=== PATIENT | male | born 1955 | race Caucasian/White ===

== ENCOUNTER 2019-07-19 17:15 | Outpatient (CLI) | payer BC, SELFPAY ==
--- NOTE | ~2019-07-19 | US_ITS ---
EXAMINATION: US venous doppler [facility] DATE: 07/19/2019 17:57 INDICATION: Lower limb pain and swelling TECHNIQUE: Howard scale images without and with compression and Doppler images of the bilateral lower e xtremity veins were obtained. COMPARISON: None FINDINGS: The right common femoral vein, profunda femoral vein, femoral vein, popliteal vein, peroneal trunk, p osterior tibial veins, and greater saphenous vein are patent. There is thrombosis of the left common femoral vein, profunda femoral vein, femoral vein, popliteal v ein, peroneal trunk, and posterior tibial veins. The greater saphenous vein is patent. IMPRESSION: 1. Extensive deep venous thrombosis of the left leg. 2. No deep venous thrombosis of the right leg. Reviewed, dictated and finalized at location A.
== END 2019-07-19 17:16 | disposition home or self-care (01) ==
PROVIDERS: PCP Family Medicine; Visit Provider Physician Assistant
DX: M79.605 Pain in left leg (principal); M79.89 Other specified soft tissue disorders; I82.412 Acute embolism and thrombosis of left femoral vein; I82.432 Acute embolism and thrombosis of left popliteal vein; I82.452 Acute embolism and thrombosis of left peroneal vein; I82.442 Acute embolism and thrombosis of left tibial vein
CPT/HCPCS: 93970

== ENCOUNTER 2019-10-24 16:10 | Outpatient (CLI) | payer BC, SELFPAY ==
--- NOTE | ~2019-10-24 | US_ITS ---
EXAMINATION:US venous doppler LE LT INDICATION:Follow-up deep venous thrombosis TECHNIQUE: Multiple grayscale, color flow and Doppler images of the left lower extremity deep venous systems were obtained and reviewed. COMPARISON:07/19/2019 FINDINGS: There is chronic deep venous thrombosis of the left common femoral and femoral veins. The r emainder of the left lower extremity veins are patent with normal compressibility, color flow and aug mentation. IMPRESSION: 1: Chronic deep venous thrombosis of the left common femoral and femoral veins. Reviewed, dictated and finalized at location A.
== END 2019-10-24 16:11 | disposition home or self-care (01) ==
LOC: ANHIMG 16:11
PROVIDERS: PCP Family Medicine; Visit Provider Family Medicine
DX: I82.402 Acute embolism and thrombosis of unspecified deep veins of left lower extremity (principal)
CPT/HCPCS: 93971

== ENCOUNTER → 2020-02-27 15:18 | Outpatient (CLI) | payer BC, SELFPAY ==
--- NOTE | ~2020-02-27 | US_ITS ---
EXAMINATION: US venous doppler LE EXAM DATE: 02/27/2020 16:15 INDICATION: I82.402 - Acute embolism and thrombosis of unspecified deep veins of left lower extremity . TECHNIQUE: Multiple grayscale, color flow and Doppler images of the left lower extremity deep venous system obtained and reviewed. Comparison is made to prior examination from 10/24/2019. FINDINGS: There is interval recanalization of the left common femoral vein. Persistent nonocclusive thrombus in the femoral and popliteal veins. Suspect reversal of venous flow direction in the popliteal vein and nonthrombosed calf veins. There is an nonspecific echogenic structure with shadowing in popliteal fossa, measuring 2.2 cm, coul d be debris within a Shannon's cyst or less likely thrombosed popliteal arterial aneurysm. Consider cor relating with the x-ray. IMPRESSION: 1. Nonocclusive left femoral and popliteal DVT. 2. Echogenic structure in the popliteal fossa, probably Shannon's cyst. Consider frontal lateral knee x-ray. 3. Apparent reversal of venous flow suspected in popliteal and some calf veins. Reviewed, dictated and finalized at location B. RVISOR CEREAL IMPRESSION: 1. Nonocclusive left femoral and popliteal DVT. 2. Echogenic structure in the popliteal fossa, probably Shannon's cyst. Consider frontal lateral knee x-ray. 3. Apparent reversal of venous flow suspected in popliteal and some calf veins .
== END ==
PROVIDERS: PCP Family Medicine; Visit Provider Family Medicine
DX: I82.432 Acute embolism and thrombosis of left popliteal vein (principal); I82.412 Acute embolism and thrombosis of left femoral vein
CPT/HCPCS: 93971

== ENCOUNTER 2020-03-25 11:19 | Outpatient (CLI) | payer BC, SELFPAY ==
--- NOTE | ~2020-03-25 | US_ITS ---
EXAMINATION: US venous doppler [facility] DATE: 03/25/2020 11:58 INDICATION: Acute thrombosis of the deep veins of the left lower limb. TECHNIQUE: Grayscale ultrasound images without and with compression and Doppler ultrasound images of the left lower extremity veins were obtained. COMPARISON: 02/27/2020 FINDINGS: There is persistent thrombosis in the left femoral vein which is partially compressible proximal and noncompressible in the mid to distal vein. The visualized portions of left common femoral vein, profu nda (deep) femoral vein, popliteal vein, posterior tibial veins, gastrocnemius vein and greater saphe nous vein outflow are patent. There is however flow reversal in the proximal left popliteal vein and gastrocnemius vein IMPRESSION: 1. Persistent deep venous thrombosis of the left femoral vein with flow reversal in the left poplite al and gastrocnemius veins. Reviewed, dictated and finalized at location B. [employer] IMPRESSION: 1. Persistent deep venous thrombosis of the left femoral vein with flow revers al in the left popliteal and gastrocnemius veins.
== END 2020-03-25 11:20 | disposition home or self-care (01) ==
PROVIDERS: PCP Family Medicine; Visit Provider Physician Assistant
DX: I82.412 Acute embolism and thrombosis of left femoral vein (principal)
CPT/HCPCS: 93971

== ENCOUNTER 2020-06-21 09:57 | Outpatient (CLI) | payer BC, SELFPAY ==
--- NOTE | ~2020-06-21 | XR_ITS ---
EXAMINATION: XR knee RT min 4V DATE: 06/21/2020 10:30 INDICATION: Right knee pain. TECHNIQUE: 4 views of right knee were obtained. COMPARISON: None. FINDINGS: Bone alignment is normal. No fracture. There is moderate osteoarthritis of medial compartme nt and mild osteoarthritis of lateral and patellofemoral compartments. No knee joint effusion. There are loose bodies in the posterior aspect of the knee joint. IMPRESSION: 1. Moderate right knee osteoarthritis. 2. Right knee joint loose bodies. Reviewed, dictated and finalized at location B.
== END 2020-06-21 09:58 | disposition home or self-care (01) ==
LOC: ANHIMG 10:05
PROVIDERS: PCP Family Medicine; Visit Provider Physician Assistant
DX: M25.561 Pain in right knee (principal); M17.11 Unilateral primary osteoarthritis, right knee; M23.41 Loose body in knee, right knee
CPT/HCPCS: 73564

== ENCOUNTER → 2020-07-01 10:58 | Outpatient (CLI) | payer BC, SELFPAY ==
--- NOTE | ~2020-07-01 | MR_ITS ---
EXAMINATION: MR knee RT wo con DATE: 07/01/2020 11:41 INDICATION: Right knee pain TECHNIQUE: Magnetic resonance imaging (MRI) of the right knee was performed without intravenous contr ast. Sequences included coronal PD-weighted FSE, coronal PD-weighted FS FSE, sagittal T2-weighted FS E, sagittal PD-weighted FS FSE and axial PD weighted fat saturated FSE. COMPARISON: Right knee radiographs dated 06/21/2020 FINDINGS: Medial compartment: Complex tear of the body and posterior horn of the medial meniscus. Extensive full/near full-thicknes s cartilage loss at the medial tibial plateau and anterior to central weightbearing medial femoral co ndyle with small scattered regions of mild subarticular edema. Moderate size marginal osteophytes are present. Lateral compartment: Lateral meniscus is normal. Deep chondral fissuring without degenerative subchondral changes along th e anterior to central weightbearing lateral femoral condyle. Small marginal osteophytes are present. Patellofemoral compartment: Tarsal thickness chondral loss and deep chondral fissuring at the medial trochlea, trochlear groove a nd medial side of the lateral trochlea. Tiny central subchondral ossified at the inferior aspect of t he medial trochlea. Mild partial thickness cartilage loss and deep fissuring without degenerative sub chondral changes at the inferior aspect of the medial patellar facet. Small to moderate size marginal osteophytes are present. Ligaments and tendons: Anterior and posterior cruciate ligaments are normal. The medial collateral ligament and fibular bill ateral ligament complex are normal. The extensor mechanism is normal. The visualized medial and later al hamstring tendons as well as the iliotibial band are normal. Fluid: Physiologic amount of fluid in the joint space. Cluster of small loose osteochondral bodies in the re cess posterior to the distal posterior cruciate ligament. Mild prepatellar edema. Osseous/other: No fracture or pathologic marrow replacing process. Hypertrophic change along the posterolateral supr acondylar footplate of the lateral head of the gastrocnemius muscle. IMPRESSION: 1. Complex tear of the medial meniscus. 2. Tricompartmental osteoarthritis, moderate severity with extensive moderate high-grade chondral mal acia in the medial compartment and mild with moderate grade chondral malacia in the lateral and moses lofemoral compartments. Reviewed, dictated and finalized at location A. IMPRESSION: 1. Complex tear of the medial meniscus. 2. Tricompartmental osteoarthritis, moderate severity with extensive moderate h igh-grade chondral malacia in the medial compartment and mild with moderate gra de chondral malacia in the lateral and patellofemoral compartments.
== END ==
PROVIDERS: PCP Family Medicine; Visit Provider Physician Assistant
DX: M17.11 Unilateral primary osteoarthritis, right knee (principal); S83.231D Complex tear of medial meniscus, current injury, right knee, subsequent encounter; X58.XXXD Exposure to other specified factors, subsequent encounter
CPT/HCPCS: 73721

== ENCOUNTER → 2021-01-27 07:26 | Outpatient (REF) | payer BC, SELFPAY | LOC: ANHLAB 07:26 | PROVIDERS: PCP Family Medicine; Visit Provider Nurse Practitioner | DX: D04.22 Carcinoma in situ of skin of left ear and external auricular canal (principal) | CPT/HCPCS: 88305; 88331 ==

== ENCOUNTER 2021-04-29 15:32 | Outpatient (CLI) | payer BC, SELFPAY ==
--- NOTE | ~2021-04-29 | XR_ITS ---
XR lumbar spine 2-3V DATE: 04/29/2021 16:12 INDICATION: Back pain TECHNIQUE: AP, lateral, coned lateral lumbosacral views COMPARISON: None FINDINGS: There is levoscoliosis of the thoracic and upper lumbar spine. There is diffuse severe degenerative disc disease at L4-5 and moderately severe degenerative disease at L2-3, L3-4 and L5-S1. Mild degenerative disease at L1-2. There is associated minimal retrolisthesi s at L4-5. No fracture or bone destruction. The lumbar pedicles are intact. The sacroiliac joints are intact. IMPRESSION: Multilevel prominent degenerative disc disease Reviewed, dictated and finalized at location A. ENSATION AND BENEFITS ANALYST
== END 2021-04-29 15:33 | disposition home or self-care (01) ==
LOC: ANHIMG 15:35
PROVIDERS: PCP Family Medicine; Visit Provider Physician Assistant
DX: M47.817 Spondylosis without myelopathy or radiculopathy, lumbosacral region (principal)
CPT/HCPCS: 72100

== ENCOUNTER → 2021-07-04 02:11 | Outpatient (CLI) | payer BC, SELFPAY ==
[2021-07-04 11:04] LABS: Influenza A QL RT-PCR Negative (Negative); Influenza B QL RT-PCR Negative (Negative); SARS-CoV-2 RNA PCR Positive
== END ==
PROVIDERS: PCP Family Medicine; Visit Provider Family Medicine
DX: U07.1 COVID-19 (principal)
CPT/HCPCS: 87502; C9803; U0003; U0005

== ENCOUNTER 2021-11-28 10:27 | Outpatient (CLI) | payer BC, SELFPAY ==
--- NOTE | ~2021-11-28 | US_ITS ---
EXAMINATION:US venous doppler LE LT INDICATION:Personal history of DVT. TECHNIQUE: Multiple grayscale, color flow and Doppler images of the left lower extremity deep venous systems were obtained and reviewed. COMPARISON:Ultrasound dated 03/25/2020 FINDINGS: There is normal flow in the common femoral, profunda femoral and popliteal veins demonstrat e normal respiratory variation, augmentation and compressibility. There is deep venous thrombosis in the superficial femoral and the peroneal veins, likely chronic. Color flow is also seen within the po sterior tibial, greater saphenous and profunda veins. IMPRESSION: 1: Deep venous thrombosis in the left superficial femoral and peroneal veins, likely chronic. Reviewed, dictated and finalized at location B. IMPRESSION: 1: Deep venous thrombosis in the left superficial femoral and peroneal veins, l ikely chronic.
== END 2021-11-28 10:28 | disposition home or self-care (01) ==
LOC: ANHIMG 10:31
PROVIDERS: PCP Family Medicine; Visit Provider Nurse Practitioner Family
DX: M79.89 Other specified soft tissue disorders (principal); M79.605 Pain in left leg; Z86.718 Personal history of other venous thrombosis and embolism; I82.412 Acute embolism and thrombosis of left femoral vein; I82.452 Acute embolism and thrombosis of left peroneal vein
CPT/HCPCS: 93971

== ENCOUNTER 2023-11-08 12:50 | Outpatient (CLI) | payer MEDICARE, OTHER, SELFPAY ==
[2023-11-08 13:29] LABS: Alanine Aminotransferase 64 U/L (6-50); Albumin Level 4.6 g/dL (3.5-5.1); Alkaline Phosphatase 50 U/L (38-126); Anion Gap 11 mmol/L (4-12); Aspartate Amino Transferase 43 U/L (17-59); Bilirubin,Total 0.5 mg/dL (0.2-1.3); Blood Urea Nitrogen 18 mg/dL (9-20); Calcium 9.8 mg/dL (8.4-10.2); Carbon Dioxide 27 mmol/L (22-30); Chloride 99 mmol/L (98-107); Estimated Glomerular Filt Rate > 60; Glucose 130 mg/dL (65-110); Potassium 4.4 mmol/L (3.4-5.0); Sodium 137 mmol/L (137-145)
== END 2023-11-08 12:51 | disposition home or self-care (01) ==
PROVIDERS: PCP Family Medicine; Visit Provider Family Medicine
DX: E11.9 Type 2 diabetes mellitus without complications (principal)
CPT/HCPCS: 36415; 80053; 83036

== ENCOUNTER 2024-07-12 12:39 | Outpatient (CLI) | payer MEDICARE, OTHER, SELFPAY ==
--- OUTSIDE RECORDS SUMMARY | 2024-07-12 12:45 | XMS_ITS | Clinical Summary ---
Author Organization [facility] Address [facility] [place] [address] Care Team Providers Care Child Nutrition Manager Name Role Phone Andrew Stein MD Primary Care Provider Allergies No known active allergies Medications omega-3 fatty acids 100 mg tablet,chewable 1 tablet 05/02/2020 Act mauri allopurinoL (ZYLOPRIM) 100 mg tablet 1 tablet 05/02/2020 Active colchicine (COLCRYS) 0.6 mg tablet 04/29/2020 Active fenofibrate (TRIGLIDE) 160 mg tablet Take 80 mg by mouth daily 04/09/2020 Active HYDROcodone-acet aminophen (NORCO) 5-325 mg per tablet Take by mouth every 6 (six) hours as needed 04/29/2020 Active Active Problems Problem Noted Date Diagnosed Date Laceration 05/03/2020 Social History Tobacco Use Types Packs/Day Years Used Date Smoking Tobacco: Never Smokeless Tobacco: Never Personal Safety Answer Date Recorded Getting School Help Needed Not on file 05/01 Sex and Gender Information Value Date Recorded Sex Assigned at Not on file 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 [employer] Gender Identity Not on file Sexual Orientation Not on file Obstetrics History Last Filed Vital Signs Vital Sign Reading Time Taken Comments Blood Pressure 155/100 05/02/2020 2:30 PM [employer] Pulse 73 05/02/2020 2:30 PM [employer] Temperature 36.6 C (97.8 F) 05/02/2020 2:30 PM [employer]DER [employer] Respiratory Rate - - Oxygen Saturation 100% 05/02/2020 2:30 PM M[employer]DER [employer] Inhaled Oxygen Concentration - - Weight 117.1 kg (258 lb 2.6 oz) 05/02/2020 2:30 PM [employer] Height 182.9 cm (6') 05/02/2020 2:30 PM [employer] Body Mass Index 35.01 05/02/2020 2:30 PM [employer] Plan of Treatment Not on file Insurance [facility] CASUAL[facility] Care Teams Child Nutrition Manager Relationship Specialty Start Date End Date Andrew Stein MD [address] [facility] [address] [place] [address] PCP - General 05/02/20
--- OUTSIDE RECORDS SUMMARY | 2024-07-12 12:45 | XMS_ITS | Continuity of Care Document ---
Author Organization [facility] Address [address] [place] [address] Phone Care Team Providers Care Harp Action Assembler Name Role Phone Provider, Ey[facility] Unavailable Unavailable Advance Directives Directive Yes / No Effective Date File Name No Information Encounters Encounter Description Practice Location Reason(s) For Visit Diagnoses Date Provider Providers Copied on Encounter [facility] [address] , [place], [place], [id number], [place] tel:[phone] [facility] No Information Provider Eyedoc. . Family History Family Member Type Diagnosis Age At Onset No Information Payers Payer name Insurance type Covered green party ID Authoriza tion(s) No Information Social History Type Description Quantity Date Captured Comments Sex Male Smoking Status No Information Chief Complaint And Reason For Visit No Information Reason For Referral Reason For Referral No Information History Of Present Illness Encounter Date Complaint History Of Prese nt Illness No Information Functional Status Date Functional Assessmen t No Information Instructions Date Instruction Additional Infor mation No Information Assessments Type Assessment Date No Information Patient Care Teams Name Effective Dates (start - stop) Status Members No Information
--- OUTSIDE RECORDS SUMMARY | 2024-07-12 12:45 | XMS_ITS | Referral Summary ---
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 Gender Identity Not on file Sexual Orientation Not on file Last Filed Vital Signs Vital Sign Reading Time Taken Comments Blood Pressure 155/100 05/02/2020 2:30 PM ACCESS REPRESENTATIVE Pulse 73 05/02/2020 2:30 PM ACCESS REPRESENTATIVE Temperature 36.6 C (97.8 F) 05/02/2020 2:30 PM ACCESS REPRESENTATIVE Respiratory Rate - - Oxygen Saturation 100% 05/02/2020 2:30 PM ACCESS REPRESENTATIVE Inhaled Oxygen Concentration - - Weight 117.1 kg (258 lb 2.6 oz) 05/02/2020 2:30 PM ACCESS REPRESENTATIVE Height 182.9 cm (6') 05/02/2020 2:30 PM ACCESS REPRESENTATIVE Body Mass Index 35.01 05/02/2020 2:30 PM ACCESS REPRESENTATIVE Plan of Treatment Not on file Insurance [facility] CASUALTY Care Teams Ream Cutter Relationship Specialty Start Date End Date Andrew Stein MD [address] [facility] [address] [place] [address] PCP - General 05/02/20
[2024-07-12 13:09] LABS: Alanine Aminotransferase 41 U/L (6-50); Albumin Level 4.7 g/dL (3.5-5.1); Alkaline Phosphatase 42 U/L (38-126); Anion Gap 8 mmol/L (4-12); Aspartate Amino Transferase 38 U/L (17-59); Bilirubin,Total 0.5 mg/dL (0.2-1.3); Blood Urea Nitrogen 17 mg/dL (9-20); Calcium 9.9 mg/dL (8.4-10.2); Carbon Dioxide 29 mmol/L (22-30); Chloride 104 mmol/L (98-107); Estimated Glomerular Filt Rate > 60; Glucose 202 mg/dL (65-110); Potassium 4.9 mmol/L (3.4-5.0); Sodium 141 mmol/L (137-145)
[2024-07-12 13:31] LABS: Hemoglobin A1C 6.4 % (<5.7)
== END 2024-07-12 12:40 | disposition home or self-care (01) ==
LOC: ANHLAB 12:42
PROVIDERS: PCP Family Medicine; Visit Provider Family Medicine
DX: E11.9 Type 2 diabetes mellitus without complications (principal)
CPT/HCPCS: 36415; 80053; 83036

== ENCOUNTER 2025-01-11 11:00 | Outpatient (CLI) | payer MEDICARE, OTHER, SELFPAY ==
[2025-01-11 11:59] LABS: Alanine Aminotransferase 39 U/L (6-50); Albumin Level 4.6 g/dL (3.5-5.1); Alkaline Phosphatase 49 U/L (38-126); Anion Gap 8 mmol/L (4-12); Aspartate Amino Transferase 30 U/L (17-59); Bilirubin,Total 0.5 mg/dL (0.2-1.3); Blood Urea Nitrogen 22 mg/dL (9-20); Calcium 9.5 mg/dL (8.4-10.2); Carbon Dioxide 26 mmol/L (22-30); Chloride 108 mmol/L (98-107); Estimated Glomerular Filt Rate 57; Glucose 111 mg/dL (65-110); Potassium 4.2 mmol/L (3.4-5.0); Sodium 142 mmol/L (137-145); Total Protein 7.9 g/dL (6.3-8.2)
--- OUTSIDE RECORDS SUMMARY | 2025-01-11 12:05 | XMS_ITS | Encounter Summary ---
Author Organization [facility] Address [address] [place] [address] Care Team Providers Care Senior Consulting Manager Name Role Phone Andrew Stein MD Primary Care Provider Encounter Details Date Type Department Care Team (Late st Contact Info) Description 12/21/2024 Results Follow-Up [place] [facility] at [address] [place] [address] Pete Newman NP [address] [place] [address] [address] [place] [address] Basic metabolic panel, Lipid panel, eGFR Social History Tobacco Use Types Packs/Day Years Used Date Smoking Tobacco: Never Smokeless Tobacco: Never Personal Safety Answer Date Recorded Have you ever been in or are you currently in a harmful physical or emotional relationship or is someone making you feel afraid or unsafe? 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 documented in this encounter Plan of Treatment Not on file documented as of this encounter Visit Diagnoses Not on filedocumented in this encounter Care Teams Senior Consulting Manager Relationship Specialty Start Date End Date Andrew Stein MD [address] [facility] [address] [place] [address] PCP - General 05/02/20 documented as of this encounter
--- OUTSIDE RECORDS SUMMARY | 2025-01-11 12:05 | XMS_ITS | Encounter Summary ---
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 Lab work sent in. documented in this encounter Plan of Treatment Not on file documented as of this encounter Visit Diagnoses Not on filedocumented in this encounter Care Teams Fountain Server Relationship Specialty Start Date End Date Andrew Stein MD [address] [facility] [address] [place] [address] PCP - General 05/02/20 documented as of this encounter
--- OUTSIDE RECORDS SUMMARY | 2025-01-11 12:05 | XMS_ITS | Clinical Summary ---
Author Organization [facility] Address [address] [place] [address] Care Team Providers Care Accounts Payable Assistant Name Role Phone Andrew Stein MD Primary Care Provider Allergies No known active allergies Medications omega-3 fatty acids 100 mg tablet,chewable 1 tablet 05/02/2020 Act mauri allopurinoL (ZYLOPRIM) 100 mg tablet 1 tablet (100 mg total) 05/02/2020 Active colchicine (COLCRYS) 0.6 mg tablet 04/29/2020 Active fenofibrate (TRIGLIDE) 160 mg tablet Take 0.5 tablets (80 mg total) by mouth daily 04/09/2020 Active HYDROcodone-hafsa taminophen (NORCO) 5-325 mg per tablet Take by mouth every 6 (six) hours as needed 04/29/2020 Active rivaroxaban (XARELTO) 20 mg tablet Take 1 tablet (20 mg total) by mouth daily Active cyclobenzaprine (FLEXERIL) 5 mg tablet TAKE 1 TABLET BY MOUTH EVERY DAY AT BEDTIME NEEDED FOR MUSCLE SPASM 09/04/2024 Active metFORMIN XR (GLUCOPHAGE XR) 500 mg 24 hr tablet Take 4 tablets (2,000 mg total) by mouth daily 09/21/2024 Active lisinopriL (PRINIVIL,ZESTR IL) 40 mg tablet Take 1 tablet (40 mg total) by mouth daily 90 tablet 3 10/05/2024 Active atorvastatin (LIPITOR) 80 mg tablet Take 1 tablet (80 mg total) by mouth nightly at bedtime 90 tablet 3 12/06/2024 Active Active Problems Problem Noted Date Diagnosed Date Primary hypertension 10/02/2024 Hyperlipidemia 10/02/2024 Chest pain, unspecified type 08/25/2024 Laceration 05/03/2020 Encounters Date Type Department Care Team Description 12/21/2024 Orders Only [place] [facility] at [address] [address] Pete Newman NP Hyperlipidemia, unspecified hyperlipidemia type (Primary Dx) 12/21/2024 Results Follow-Up [place] [facility] at [address] [address] Pete Newman NP Basic metabolic panel, Lipid panel, eGFR 12/20/2024 8:25 AM CDT Lab [address] Familial hypercholesterolemia, unspecified type 12/07/2024 Orders Only [place] [facility] at [address] [address] Pete Newman NP Familial hypercholesterolemia, unspecified type (Primary Dx) 12/07/2024 Orders Only [place] [facility] at [address] [address] Pete Newman NP Familial hypercholesterolemia, unspecified type (Primary Dx) 12/06/2024 9:20 AM CDT Lab [address] Hyperlipidemia, unspecified hyperlipidemia type 12/06/2024 Results Follow-Up [place] [facility] at [address] [address] Pete Newman NP Lipid panel 12/06/2024 Orders Only [place] [facility] at [address] [address] Pete Newman NP from Last 3 Months Social History Tobacco Use Types Packs/Day Years Used Date Smoking Tobacco: Never Smokeless Tobacco: Never Tobacco Cessation:Counseling Given: Not Answered Personal Safety Answer Date Recorded Have you ever been in or are you currently in a harmful physical or emotional relationship or is someone making you feel afraid or unsafe? Denies 08/24/2024 Sex and Gender Information Value Date Recorded Sex Assigned at Not on file Legal Sex Male 6:47 PM [employer] Gender Identity Not on file Sexual Orientation Not on file Last Filed Vital Signs Vital Sign Reading Time Taken Comments Blood Pressure 142/83 10/05/2024 10:31 AM CDT Pulse 77 10/05/2024 10:31 AM CDT Temperature 36.1 C (96.9 F) 08/25/2024 11:04 AM CDT Respiratory Rate 18 10/05/2024 10:31 AM CDT Oxygen Saturation 94% 08/25/2024 1:54 PM CDT Inhaled Oxygen Concentration - - Weight 115.2 kg (254 lb) 10/05/2024 10:31 AM CDT Height 182.9 cm (6') 10/05/2024 10:31 AM CDT Body Mass Index 34.45 10/05/2024 10:31 AM CDT Plan of Treatment Health Maintenance Due Date Last Done Comments Albumin Creatinine Ratio, Urine 1954 Colon Cancer Screening-Colonoscopy 1954 Depression Screening 1954 Hepatitis C Screening 1954 Dilated Eye Exam 1954 Foot Exam 1954 Hepatitis B Screening 1972 Pneumococcal vaccine 65+ (1 of 2 - PCV) 1973 Zoster Vaccine (1 of 2) 2004 Well Visit 65+ 06/22/2019 Influenza Vaccine (#1) 2024 12/26/2019 Hemoglobin A1C 02/24/2025 08/25/2024 Fall Risk Assessment 08/25/2025 08/25/2024 Lipid Panel 12/20/2025 12/20/2024, 10/0 09/2024, 08/25/2024 eGFR 12/20/2025 12/20/2024, 07/31, 08/24/2024 DTaP/Tdap/Td Vaccine (2 - Td or Tdap) 05/02/203005/2020 Abdominal Aortic Aneurysm (A AA) Screen Completed 08/24/2024 Procedures Procedure Name Priority Date/Time Associated Diagnosis Comments EGFR Routine 12/20/2024 8:25 AM CDT Familial hypercholesterolemia, unspecified type LIPID PANEL Routine 12/20/2024 8:25 AM CDT Familial hypercholesterolemia, unspecified type BASIC METABOLIC PANEL Routine 12/20/2024 8:25 AM CDT Familial hypercholesterolemia, unspecified type LIPID PANEL Routine 12/06/2024 9:22 AM CDT Hyperlipidemia, unspecified hyperlipidemia type HEMOGLOBIN A1C Routine 08/25/2024 3:35 AM CDT CTA CHEST ABDOMEN PELVIS ED 08/24/2024 11:09 PM CDT from Last 3 Months or Most Recently Relevant to Health Maintenance Results * eGFR (12/20/2024 8:25 AM CDT) eGFR 70 >=60 mL/min/1. 73 m2 Comment: Interpretive Data Reference Interval Normal >/= 90 mL/min/1.73m2 Mildly decreased* 60 - 89 mL/min/1.73m2 Mildly to moderately decreased 45 - 59 mL/min/1.73m2 Moderately to severely decreased 30 - 44 mL/min/1.73m2 Severely decreased 15 - 29 mL/min/1.73m2 Kidney Failure < 15 mL/min/1.73m2 *Relative to young adult level Estimated glomerular filtration rate is determined by the 2020 CKD-EPI equation recommended by the National Kidney Foundation (A Unifying Approach to GFR Estimation: Recommendations of the NKF-ASK Task Force on Reassessing the Inclusion of Race in Diagnosing Kidney Disease, JASN 202). The CKD-EPI equation should not be used for patients with unstable renal function and has not been validated in children and those over 70. Current interpretive data was last reviewed 2020. Blood 12/20/2024 8:25 AM CDT 12/20/2024 10:25 AM CDT us Pete Newman NP LAB BLOOD ORDERABLES Final R esult [facility] ([place]) [facility] Department [place] [address] * (ABNORMAL) Lipid panel (12/20/2024 8:25 AM CDT) Cholesterol 187 30 - 199 mg/dL Comment: Interpretive Data Ages < or = 19 years Acceptable: <170 mg/dL Borderline high: 170-199 mg/dL High: >or= 200 mg/dL Ages > or = 20 years Desirable: <200 mg/dL Borderline high: 200-239 mg/dL High: >or= 240 mg/dL Literature References: 1. Expert Panel on Integrated Guidelines for Cardiovascular Health and Risk Reduction in Children and Adolescents. Pediatrics 2011;128:S213 2. NCEP Expert Panel. Circulation 2004;110:227 Current Interpretive Data was last revised on 2017. Triglycerides 158(H) <=149 mg/dL [facility] ([place]) Comment: Interpretive Data Ages < or = 9 years Acceptable: <75 mg/dL Borderline high: 75-99 mg/dL High: >or= 100 mg/dL Ages 10 to 20 years Acceptable: <90 mg/dL Borderline high: 90-129 mg/dL High: >or= 130 mg/dL Ages > or = 20 years Desirable: <150 mg/dL Borderline high: 150-199 mg/dL High: 200-499 mg/dL Very high: >or= 499 mg/dL Literature References: 1. Expert Panel on Integrated Guidelines for Cardiovascular Health and Risk Reduction in Children and Adolescents. Pediatrics 2011;128:S213 2. NCEP Expert Panel. Circulation 2004;110:227 Current Interpretive Data was last revised on 2017. HDL 44 >=40 mg/dL [facility] ([place]) Comment: Interpretive Data Ages < or = 19 years Acceptable: >45 mg/dL Borderline low: 40-45 mg/dL Low: <40 mg/dL Ages > or = 20 years Desirable: >or= 60 mg/dL Low: <40 mg/dL Literature References: 1. Expert Panel on Integrated Guidelines for Cardiovascular Health and Risk Reduction in Children and Adolescents. Pediatrics 2011;128:S213 2. NCEP Expert Panel. Circulation 2004;110:227 Current Interpretive Data was last revised on 2017. LDL, calculated 115 <=129 mg/dL [facility]) Comment: Interpretive Data Ages < or = 19 years Acceptable: <110 mg/dL Borderline high: 110-129 mg/dL High: >or= 130 mg/dL Ages > or = 20 years Optimal: <100 mg/dL Near optimal: 100-129 mg/dL Borderline high: 130-159 mg/dL High: >160 mg/dL Calculated using the Maximo LDL-C estimating equation. This equation was implemented on 2023. Prior to this date LDL-C was estimated using the Friedewald equation. Literature References: 1. Expert Panel on Integrated Guidelines for Cardiovascular Health and Risk Reduction in Children and Adolescents. Pediatrics 2011;128:S213 2. NCEP Expert Panel. Circulation 2004;110:227 3. Maximo Nino et al. ADAN Cardiol. 2019June 29;5(5):540-548. doi: 10.1001/jamacardio.2020.0013 Current Interpretive Data was last revised on 2023. Non-HDL Cholesterol 143 mg/dL [facility] ([place]) Comment: Interpretive Data Ages < or = 19 years Acceptable: <120 mg/dL Borderline high: 120-144 mg/dL High: >145 mg/dL Ages > or = 20 years When triglycerides are >200 mg/dL, Non-HDL cholesterol is a secondary target of therapy with treatment goals that are 30 mg/dL greater than the LDL cholesterol target. Literature References: 1. Expert Panel on Integrated Guidelines for Cardiovascular Health and Risk Reduction in Children and Adolescents. Pediatrics 2011;128:S213 2. NCEP Expert Panel. Circulation 2004;110:227 Current Interpretive Data was last revised on 2017. Chol/HDL ratio 4 [facility] ([place]) Blood 12/20/2024 8:25 AM CDT 12/20/2024 10:25 AM CDT us Pete Newman LABEL MACHINE OPERATOR LAB BLOOD ORDERABLES Final R esult [facility] ([place]) [facility] [place] [address] * Basic metabolic panel (12/20/2024 8:25 AM CDT) Sodium 145 135 - 145 mmol/L Potassium, pl 4.2 3.3 - 4.9 mmol/L [facility] ([place]) Chloride 106 97 - 110 mmol/L [facility] ([place]) CO2 25 22 - 32 mmol/L [facility] ([place]) Anion gap 14 2 - 15 mmol/L [facility] ([place]) BUN 19 6 - 25 mg/dL [facility] ([place]) Creatinine 1.13 0.80 - 1.30 mg/dL [facility] ([place]) Glucose 107 70 - 199 mg/dL [facility] ([place]) Comment: Interpretive Data Fasting glucose >/= 126 mg/dl is diagnostic for diabetes. Fasting is defined as no caloric intake for at least 8 hours. Fasting glucose between 100 mg/dl to 125 mg/dl is diagnostic of prediabetes. In a patient with classic symptoms of hyperglycemia or hyperglycemic crisis, a random glucose >/= 200 mg/dl is diagnostic for diabetes. In the absence of unequivocal hyperglycemia, results should be confirmed by repeat testing. The classification and Diagnosis of Diabetes Diabetes Care 2021; 46: S19-S40. Current interpretive data was last revised 2022. Calcium 10.0 8.5 - 10.3 mg/dL [facility] ([place]) Blood 12/20/2024 8:25 AM CDT 12/20/2024 10:25 AM CDT us Pete Newman LABEL MACHINE OPERATOR LAB BLOOD ORDERABLES Final R esult [facility] ([place]) 1 [facility] Department [place] [address] * (ABNORMAL) Lipid panel (12/06/2024 9:22 AM CDT) Cholesterol 198 30 - 199 mg/dL [facility] ([place]) Comment: Interpretive Data Ages < or = 19 years Acceptable: <170 mg/dL Borderline high: 170-199 mg/dL High: >or= 200 mg/dL Ages > or = 20 years Desirable: <200 mg/dL Borderline high: 200-239 mg/dL High: >or= 240 mg/dL Literature References: 1. Expert Panel on Integrated Guidelines for Cardiovascular Health and Risk Reduction in Children and Adolescents. Pediatrics 2011;128:S213 2. NCEP Expert Panel. Circulation 2004;110:227 Current Interpretive Data was last revised on 2017. Triglycerides 189(H) <=149 mg/dL [facility] ([place]) Comment: Interpretive Data Ages < or = 9 years Acceptable: <75 mg/dL Borderline high: 75-99 mg/dL High: >or= 100 mg/dL Ages 10 to 20 years Acceptable: <90 mg/dL Borderline high: 90-129 mg/dL High: >or= 130 mg/dL Ages > or = 20 years Desirable: <150 mg/dL Borderline high: 150-199 mg/dL High: 200-499 mg/dL Very high: >or= 499 mg/dL Literature References: 1. Expert Panel on Integrated Guidelines for Cardiovascular Health and Risk Reduction in Children and Adolescents. Pediatrics 2011;128:S213 2. NCEP Expert Panel. Circulation 2004;110:227 Current Interpretive Data was last revised on 2017. HDL 45 >=40 mg/dL [facility] ([place]) Comment: Interpretive Data Ages < or = 19 years Acceptable: >45 mg/dL Borderline low: 40-45 mg/dL Low: <40 mg/dL Ages > or = 20 years Desirable: >or= 60 mg/dL Low: <40 mg/dL Literature References: 1. Expert Panel on Integrated Guidelines for Cardiovascular Health and Risk Reduction in Children and Adolescents. Pediatrics 2011;128:S213 2. NCEP Expert Panel. Circulation 2004;110:227 Current Interpretive Data was last revised on 2017. LDL, calculated 120 <=129 mg/dL [facility] ([place]) Comment: Interpretive Data Ages < or = 19 years Acceptable: <110 mg/dL Borderline high: 110-129 mg/dL High: >or= 130 mg/dL Ages > or = 20 years Optimal: <100 mg/dL Near optimal: 100-129 mg/dL Borderline high: 130-159 mg/dL High: >160 mg/dL Calculated using the Marsh LDL-C estimating equation. This equation was implemented on 2023. Prior to this date LDL-C was estimated using the Friedewald equation. Literature References: 1. Expert Panel on Integrated Guidelines for Cardiovascular Health and Risk Reduction in Children and Adolescents. Pediatrics 2011;128:S213 2. NCEP Expert Panel. Circulation 2004;110:227 3. Maximo Nino et al. ADAN Cardiol. 2020 June 29;5(5):540-548. doi: 10.1001/jamacardio.2020.0013 Current Interpretive Data was last revised on 2023. Testing performed by: [place], [address] Non-HDL Cholesterol 153 mg/dL [facility] ([place]) Comment: Interpretive Data Ages < or = 19 years Acceptable: <120 mg/dL Borderline high: 120-144 mg/dL High: >145 mg/dL Ages > or = 20 years When triglycerides are >200 mg/dL, Non-HDL cholesterol is a secondary target of therapy with treatment goals that are 30 mg/dL greater than the LDL cholesterol target. Literature References: 1. Expert Panel on Integrated Guidelines for Cardiovascular Health and Risk Reduction in Children and Adolescents. Pediatrics 2011;128:S213 2. NCEP Expert Panel. Circulation 2004;110:227 Current Interpretive Data was last revised on 2017. Testing performed by: [place], [address] Chol/HDL ratio 4 KARLENENE Lori [facility] ([place]) Comment:Testing performed by : [place], [address] Blood 12/06/2024 9:22 AM CDT 12/06/2024 10:30 AM CDT us Pete Newman LABEL MACHINE OPERATOR LAB BLOOD ORDERABLES Final R esult [facility] ([place]) 1 [facility] Department [place] [address] * (ABNORMAL) Hemoglobin A1c (08/25/2024 3:35 AM CDT) Hgb A1C 6.7(H) 4.0 - 5.6 % Estimated Average Glucose 146 mg/dL [facility] ([place]) Comment: The ADA recommends reporting an estimated Average Glucose (eAG) with all Hemoglobin A1c results using the equation derived from a study of 507 normal and diabetic adults. Minority populations were underrepresented and children were not included. (Diabetes Care 31:5182-0147, 2008). The eAG is not equivalent to a fasting glucose. Blood 08/25/2024 3:35 AM CDT 08/25/2024 3:51 AM CDT us Ashleigh Thomas MD LAB BLOOD ORDERABLES Fi nal Result [facility] ([place]) 1 [facility] Department [place] [address] * CTA Chest Abdomen Pelvis (08/24/2024 11:09 PM CDT) Anatomical Region Laterality Modality Body N/A Computed Tomogra phy 08/24/2024 11:4 3 PM CDT Narrative 08/24/2024 11:52 PM CDT EXAM DESCRIPTION: CTA CHEST ABDOMEN PELVIS REASON FOR STUDY: dissection of aorta C/o shortness of breath and chest pain that radiates to his left shoulder. Patient also complains of numbness and tingling in the left arm and hand. Hx of HTN Non smoker TECHNIQUE: CTA scan of the chest, abdomen, and pelvis performed without and with intravenous and without oral contrast using helical scanning technique with dynamic intravenous contrast injection. Precontrast images of the chest were acquired. Arterial phase images of the chest, abdomen, and pelvis as well as portal venous phase images of the abdomen were also acquired. Reconstructed coronal and sagittal MPR images reviewed. All images stored on PACS. 3D MIP images rendered on scanning unit and reviewed at time of interpretation. Automated exposure control was used as a dose optimization technique for this examination. CONTRAST TYPE/DOSE: 100mL of IOVERSOL 350 MG IODINE/ML INTRAVENOUS SYRINGE injected via intravenous COMPARISON: None FINDINGS: VASCULATURE No dissection, aneurysm, intramural hematoma, rupture, or penetrating atherosclerotic ulcer. No identified central pulmonary embolus. No large vessel occlusion. CELIAC TRUNK: No flow limiting stenosis, dissection, or aneurysm. SUPERIOR MESENTERIC ARTERY: No flow limiting stenosis, dissection, or aneurysm. RIGHT RENAL ARTERY: No flow limiting stenosis, dissection, or aneurysm. LEFT RENAL ARTERY: No flow limiting stenosis, dissection, or aneurysm. INFERIOR MESENTERIC ARTERY: No flow limiting stenosis, dissection, or aneurysm. AORTA: No flow limiting stenosis, dissection, or aneurysm. ILIAC ARTERIES: No flow limiting stenosis, dissection, or aneurysm. CHEST LUNGS: No nodules or masses. No pneumonia. Elevation right hemidiaphragm with right basilar atelectasis. PLEURA: No effusion. No pneumothorax. MEDIASTINUM/KIRK: No identified masses or abnormal nodes. HEART: Heart size is normal with no pericardial effusion. AXILLA: No adenopathy. CHEST WALL: No masses. No subcutaneous air. HARDWARE/LINES/TUBES: None. MUSCULOSKELETAL CHEST: No significant abnormality. ABDOMEN/PELVIS LIVER: Decreased attenuation as seen with fibrofatty changes. GALLBLADDER: No stones identified. No wall thickening or inflammatory changes. BILE DUCTS: No intrahepatic or extrahepatic ductal dilatation. SPLEEN: Normal size. No focal lesions. Calcified granulomas. PANCREAS: No identified cystic or solid masses. No significant calcifications. No adjacent inflammation or peripancreatic fluid collections. Pancreatic duct not dilated. ADRENALS: Normal. KIDNEYS/URINARY TRACT: No identified significant cystic or solid masses. No stones. No hydronephrosis or hydroureter. Symmetric enhancement. Urinary bladder is unremarkable. GI: No dilated bowel loops. No obvious wall thickening. Normal appendix. Colonic diverticulosis without evidence of diverticulitis. PERITONEUM: No ascites or free air. RETROPERITONEUM: No mass or adenopathy. REPRODUCTIVE: No significant abnormality. VASCULATURE ABDOMEN: No abdominal aortic aneurysm. No major occlusion or flow limiting stenosis. MUSCULOSKELETAL ABDOMEN PELVIS: Multilevel degenerative changes are present without fracture. No concerning lesions are present. OTHER: Small periumbilical hernia containing only fat. Small bilateral inguinal hernias containing only fat. IMPRESSION: 1. No aortic aneurysm or dissection. 2. Elevation right hemidiaphragm with right basilar atelectasis. 3. Fatty infiltration of the liver. 4. Diverticulosis. No evidence of diverticulitis. 5. Small periumbilical hernia containing only fat. Small bilateral inguinal hernias containing only fat. THIS IS AN ELECTRONICALLY VERIFIED FINAL REPORT 08/24/2024 11:52 PM - Electronically signed by Alexis Russ M.D. KT: NAVID Report ID: [id number] Reading Location: [id number] Procedure Note Alexis Russ MD - 08/24/2024 EXAM DESCRIPTION: CTA CHEST ABDOMEN PELVIS REASON FOR STUDY: dissection of aorta C/o shortness of breath and chest pain that radiates to his left shoulder. Patient also complains of numbness and tingling in the left arm and hand.Hx of HTN Non smoker TECHNIQUE: CTA scan of the chest, abdomen, and pelvis performed withoutand with intravenous and without oral contrast using helical scanningtechnique with dynamic intravenous contrast injection. Precontrast images of thechest were acquired. Arterial phase images of the chest, abdomen, and pelvis aswell as portal venous phase images of the abdomen were also acquired.Reconstructed coronal and sagittal MPR images reviewed. All images stored on PACS. 3DMIP images rendered on scanning unit and reviewed at time of interpretation. Automated exposure control was used as a dose optimization technique forthis examination. CONTRAST TYPE/DOSE: 100mL of IOVERSOL 350 MG IODINE/ML INTRAVENOUS SYRINGE injected via intravenous COMPARISON: None FINDINGS: VASCULATURE No dissection, aneurysm, intramural hematoma, rupture, or penetrating atherosclerotic ulcer. No identified central pulmonary embolus. Nolarge vessel occlusion. CELIAC TRUNK: No flow limiting stenosis, dissection, or aneurysm. SUPERIOR MESENTERIC ARTERY: No flow limiting stenosis, dissection, or aneurysm. RIGHT RENAL ARTERY: No flow limiting stenosis, dissection, or aneurysm. LEFT RENAL ARTERY: No flow limiting stenosis, dissection, or aneurysm. INFERIOR MESENTERIC ARTERY: No flow limiting stenosis, dissection, or aneurysm. AORTA: No flow limiting stenosis, dissection, or aneurysm. ILIAC ARTERIES: No flow limiting stenosis, dissection, or aneurysm. CHEST LUNGS: No nodules or masses. No pneumonia. Elevation righthemidiaphragm with right basilar atelectasis. PLEURA: No effusion. No pneumothorax. MEDIASTINUM/KIRK: No identified masses or abnormal nodes. HEART: Heart size is normal with no pericardial effusion. AXILLA: No adenopathy. CHEST WALL: No masses. No subcutaneous air. HARDWARE/LINES/TUBES: None. MUSCULOSKELETAL CHEST: No significant abnormality. ABDOMEN/PELVIS LIVER: Decreased attenuation as seen with fibrofatty changes. GALLBLADDER: No stones identified. No wall thickening or inflammatory changes. BILE DUCTS: No intrahepatic or extrahepatic ductal dilatation. SPLEEN: Normal size. No focal lesions. Calcified granulomas. PANCREAS: No identified cystic or solid masses. No significant calcifications. No adjacent inflammation or peripancreatic fluidcollections. Pancreatic duct not dilated. ADRENALS: Normal. KIDNEYS/URINARY TRACT: No identified significant cystic or solid masses.No stones. No hydronephrosis or hydroureter. Symmetric enhancement.Urinary bladder is unremarkable. GI: No dilated bowel loops. No obvious wall thickening. Normal appendix. Colonic diverticulosis without evidence of diverticulitis. PERITONEUM: No ascites or free air. RETROPERITONEUM: No mass or adenopathy. REPRODUCTIVE: No significant abnormality. VASCULATURE ABDOMEN: No abdominal aortic aneurysm. No major occlusion orflow limiting stenosis. MUSCULOSKELETAL ABDOMEN PELVIS: Multilevel degenerative changes arepresent without fracture. No concerning lesions are present. OTHER: Small periumbilical hernia containing only fat. Small bilateral inguinal hernias containing only fat. IMPRESSION: 1. No aortic aneurysm or dissection. 2. Elevation right hemidiaphragm with right basilar atelectasis. 3. Fatty infiltration of the liver. 4. Diverticulosis. No evidence of diverticulitis. 5. Small periumbilical hernia containing only fat. Small bilateralinguinal hernias containing only fat. THIS IS AN ELECTRONICALLY VERIFIED FINAL REPORT 08/24/2024 11:52 PM - Electronically signed by Alexis Russ M.D. KT: KT Report ID: [id number] Reading Location: [place] [address] Lalo Hernandez MD IMG CT PROCEDURES Final Resul t from Last 3 Months or Most Recently Relevant to Health Maintenance Insurance MEDICARE [facility] Advance Directives For more information, please contact: [phone] * Full Code (Latest Code Status on File) Date Activated Date Inactivated Comments 08/25/2024 3:12 AM 08/25/2024 6:17 PM Care Teams Accounts Payable Assistant Relationship Specialty Start Date End Date Andrew Stein MD [address] [facility] [address] [place] [address] PCP - General 05/02/20
[2025-01-11 12:45] LABS: Hemoglobin A1C 6.3 % (<5.7)
== END 2025-01-11 11:01 | disposition home or self-care (01) ==
PROVIDERS: PCP Family Medicine; Visit Provider Family Medicine
DX: E11.9 Type 2 diabetes mellitus without complications (principal); I10 Essential (primary) hypertension
CPT/HCPCS: 36415; 80053; 83036